=== PATIENT | female | born 1955 | race Caucasian/White ===

== ENCOUNTER → 2024-01-11 10:08 | Outpatient (REF) | payer OTHER, SELFPAY | LOC: WDC 10:08 | PROVIDERS: ATTENDING PHYSICIAN Specialist; FAMILY PHYSICIAN Family Medicine Adult Medicine | DX: Z98.82 Breast implant status (principal); R92.2 Inconclusive mammogram; N64.4 Mastodynia | CPT/HCPCS: 76642; 77062; 77066 ==

== ENCOUNTER → 2024-03-30 07:40 | Outpatient (REF) | payer OTHER, SELFPAY | LOC: MRI 3T 07:40 | PROVIDERS: ATTENDING PHYSICIAN Specialist; FAMILY PHYSICIAN Family Medicine Adult Medicine | DX: Z98.82 Breast implant status (principal); T85.41XA Breakdown (mechanical) of breast prosthesis and implant, initial encounter; T85.43XA Leakage of breast prosthesis and implant, initial encounter | CPT/HCPCS: 77047; C8937 ==